=== PATIENT | male | born 1980 | race African-American/Black ===

== ENCOUNTER 2019-10-15 18:28 | Emergency (ER) | payer OTHER ==
[~2019-10-15] VITALS: Ht 170.2 cm; Wt 70.0 kg
[~2019-10-15 18:28] MED LIST: ADVAIR INHALER; LEVO75TA7; LEVO75TA7 PO; PVCXPC
[2019-10-15 18:31] VITALS: BP 128/82
== END 2019-10-15 21:30 | disposition left against medical advice (07) ==
LOC: ER 18:28
DX: Z53.21 Procedure and treatment not carried out due to patient leaving prior to being seen by health care provider (principal); E07.9 Disorder of thyroid, unspecified